=== PATIENT | male | born 1985 | race Caucasian/White ===

== ENCOUNTER 2020-12-13 08:23 | Emergency (ER) | payer SELFPAY ==
[2020-12-13 08:35] VITALS: BP 152/91
[2020-12-13] MEDS ORDERED: SULFAMETH/TRIMETH DS 800/160 MG TABLET PO STA (09:02)
[2020-12-13] MEDS ORDERED: cefTRIAXone 1 GM VIAL IM STA (09:02)
[2020-12-13] MEDS ORDERED: LIDOCAINE 1% 2 ML VIAL MC ONE (09:02)
--- NOTE | 2020-12-13 09:11 | ED Physician Documentation ---
History of Present Illness - Stated complaint Stated Complaint: hand wound - Chief complaint Chief Complaint: Wound - History obtained from History obtained from: Patient - History of Present Illness Timing: How many days ago (3) Pain level max: 2 Pain level now: 1 - Additonal information Additional information: Patient is a 35-year-old male who presents to the emergency department with swelling to the right middle finger, erythema to the dorsum of the right hand. Worsening over the past several days. States started as a paper cut. Nothing makes it better or worse. No fever or chills. No vomiting. Tetanus is up-to-date. Patient is right-handed. Review of Systems Constitutional: denies: Fever, Chills Nose: denies: Rhinorrhea / runny nose, Congestion Respiratory: denies: Cough GI: denies: Nausea, Vomiting, Diarrhea PD PAST MEDICAL HISTORY - Past Medical History Past Medical History: No - Past Surgical History Past Surgical History: Yes - Present Medications Home Medications: Ambulatory Orders Medication Instructions Recorded Confirmed Sulfamethox/Trimeth 800/160 1 each PO BID #14 tablet 12/13/20 [Bactrim Ds 800/160] cephALEXin [Keflex] 500 mg PO Q6H #20 cap 12/13/20 - Allergies Allergies/Adverse Reactions: Allergies Allergy/AdvReac Type Severity Reaction Status Date / Time No Known Drug Allergies Allergy Verified 12/13/20 08:35 - Social History Does the pt smoke?: No Smoking Status: Former smoker Does the pt drink ETOH?: No Does the pt have substance abuse?: No PD ED PE NORMAL - Vitals Vital signs reviewed: Yes - General General: Alert and oriented X 3, No acute distress - HEENT HEENT: Moist mucous membranes - Neck Neck: Supple, no meningeal sign - Cardiac Cardiac: RRR - Respiratory Respiratory: No respiratory distress, Clear bilaterally - Derm Derm: Warm and dry - Extremities Extremities: Other (Small open spontaneously drained abscess to the right third digit, proximal phalanx, dorsum. Neurovascular intact. Full range of motion. There is erythema on the dorsum of the hand and a small streak extending to the midpoint of the right forearm. No palmar tenderness. No significant hand swell) - Neuro Neuro: Alert and oriented X 3 Results - Vitals Vitals: Vital Signs - 24 hr 12/13/20 08:32 Temperature 35.7 C L Heart Rate 109 H Respiratory 16 Rate Blood Pressure 152/91 H O2 Saturation 97 Oxygen O2 Source Room air PD MEDICAL DECISION MAKING - ED course Complexity details: considered differential, d/w patient ED course: Patient with a wound to the right third digit as well as cellulitis. Given Rocephin and Bactrim. Tetanus is up-to-date. No evidence of deep space infection in the hand. Warnings of infection and instructions on wound care given at bedside. Also counseled on how to minimize scarring. Patient counseled regarding signs and symptoms for which I believe and urgent re-evaluation would be necessary. Patient with good understanding of and agreement to plan and is comfortable going home at this time This document was made in part using voice recognition software. While efforts are made to proofread this document, sound alike and grammatical errors may occur. Departure - Departure Disposition: 01 Home, Self Care Clinical Impression: Abscess Cellulitis Qualifiers: Site of cellulitis: extremity Site of cellulitis of extremity: upper extremity Laterality: right Qualified Code(s): L03.113 - Cellulitis of right upper limb Condition: Good Instructions: ED Infec Skin Cellulitis Follow-Up: your,doctor in 3 days for recheck [Other] Prescriptions: Sulfamethox/Trimeth 800/160 [Bactrim Ds 800/160] 1 each PO BID #14 tablet cephALEXin [Keflex] 500 mg PO Q6H #20 cap Comments: Take all antibiotics until gone. Return if you worsen. The redness and swelling should improve within 24 hours. If they are not improving or you are worsening, you should return for a recheck.
== END 2020-12-13 09:33 | disposition home or self-care (01) ==
LOC: ED 08:23
DX: L02.511 Cutaneous abscess of right hand (principal); L03.113 Cellulitis of right upper limb; S61.212A Laceration without foreign body of right middle finger without damage to nail, initial encounter; W45.8XXA Other foreign body or object entering through skin, initial encounter; Z87.891 Personal history of nicotine dependence
CPT/HCPCS: 87070; 87077; 87205; 96372; 99283; 99284; A9270